=== PATIENT | male | born 1940 | race Two or more races ===

== ENCOUNTER → 2017-08-17 | Outpatient (CLI) | payer MEDICARE | LOC: M SMT 13:48 | PROVIDERS: ATTEND Nurse Practitioner Women's Health | DX: N50.9 Disorder of male genital organs, unspecified (principal); N43.42 Spermatocele of epididymis, multiple; Z79.899 Other long term (current) drug therapy; F17.210 Nicotine dependence, cigarettes, uncomplicated | CPT/HCPCS: 36415; 82105; 83615; 84702; G0463 ==